=== PATIENT | male | born 1985 | race American Indian/Alaskan Native ===

== ENCOUNTER 2021-03-22 13:58 | Emergency (ER) | payer OTHER ==
[~2021-03-22] VITALS: Ht 172.7 cm; Wt 88.5 kg
[~2021-03-22 13:58] MED LIST: CIPRO500 MG PO
[2021-03-22] MEDS ORDERED: ZOFRAN4 MG PO (16:43)
[2021-03-22] MEDS ORDERED: HYDROCODON-ACE1 EA10 PO (16:43)
== END 2021-03-22 17:00 | disposition home or self-care (01) ==
LOC: ED 13:58
DX: K82.4 Cholesterolosis of gallbladder (principal)
CPT/HCPCS: 76705; 80053; 81001; 83690; 85025; 96374; 96375; 99284-25; J1885; J2405; J7030

== ENCOUNTER 2021-07-30 15:11 | Emergency (ER) | payer BC, OTHER ==
[~2021-07-30] VITALS: Ht 172.7 cm; Wt 88.5 kg
[~2021-07-30 15:11] MED LIST changes: +HYDROCODON-ACE1 EA10 PO; +ZOFRAN4 MG PO
[2021-07-30] MEDS ORDERED: HYDROCODON-ACE1 EA10 PO (17:02)
--- NOTE | 2021-08-02 09:49 | EKG ---
[facility] [address] [facility] [place] [address] Signed Sinus rhythm with premature atrial complexes Left axis deviation Abnormal ECG No previous ECGs available Confirmed by JEANETTE THACKER MD ([id number]) on 08/02/2021 9:49:07 AM Electronically Signed By: JEANETTE THACKER MD 08/02/21 0949 PATIENT NAME: GILBERTO CHI Electrocardiogram DATE OF : 89 PHYSICIAN: JEANETTE THACKER MD REPORT #: [id number] REPORT IS CONFIDENTIAL AND NOT TO BE RELEASED WITHOUT AUTHORIZATION
== END 2021-07-30 17:43 | disposition home or self-care (01) ==
LOC: ED 15:11
DX: R07.89 Other chest pain (principal)
CPT/HCPCS: 71045; 80053; 85025; 85379; 93005; 93010; 96374; 99285-25; J1885

== ENCOUNTER 2022-01-08 11:58 | Emergency (ER) | payer BC, OTHER ==
[~2022-01-08] VITALS: Ht 172.7 cm; Wt 88.5 kg
[2022-01-08] MEDS ORDERED: NEURONTIN300 MG PO (16:28)
== END 2022-01-08 16:40 | disposition home or self-care (01) ==
LOC: ED 11:58
DX: R07.89 Other chest pain (principal)
CPT/HCPCS: 71046; 99284-25; A9270

== ENCOUNTER 2022-10-13 19:13 | Emergency (ER) | payer BC, OTHER ==
[~2022-10-13] VITALS: Ht 172.7 cm; Wt 87.5 kg
[~2022-10-13 19:13] MED LIST changes: +NEURONTIN300 MG PO
--- OUTSIDE RECORDS SUMMARY | 2022-10-13 19:17 | XMS ---
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 [facility] has no Care Guidelines for this patient. [place] [facility] (12 MO.) [facility] NOTE: Visits indicate total known visits. ED/C VISIT TRACKING (12 MO.) [facility]13[facility]22 19[facility] COMPLAINT: - ABD PAIN AND FEELING DIZZY 09/15/2022 17:40 [facility] DIAGNOSES: - Rib Pain - Unspecified abdominal pain - Shortness of Breath 01/08/2022 11:59 [facility] COMPLAINT: - R UPPER RIB PAIN DIAGNOSES: - Other chest pain INPATIENT VISIT TRACKING (12 MO.) No inpatient visits to display in this time frame [email or web address]
== END 2022-10-14 01:00 | disposition home or self-care (01) ==
LOC: ED 19:13
DX: R10.10 Upper abdominal pain, unspecified (principal); Z20.822 Contact with and (suspected) exposure to COVID-19; R42 Dizziness and giddiness; R11.0 Nausea
CPT/HCPCS: 36415; 80053; 81003; 83690; 85025; 87502; 96361; 96374; 99284-25; J2405; J7030; U0003